=== PATIENT | female | born 1960 | race Caucasian/White ===

== ENCOUNTER 2017-08-22 19:23 | Emergency (ER) | payer OTHER | END 2017-08-22 20:06 | disposition home or self-care (01) | LOC: E/R 20:06 | DX: Z48.02 Encounter for removal of sutures (principal) | CPT/HCPCS: 99281; Z7502 ==

== ENCOUNTER 2018-02-14 23:18 | Emergency (ER) | payer OTHER ==
[2018-02-15] MEDS: morphine 4 MG/ML VIAL IM (01:34)
[2018-02-15] MEDS: KETOROLAC 60 MG INJ IM (01:34)
[2018-02-15] MEDS: METHOCARBAMOL 750 MG TAB PO (01:55)
== END 2018-02-15 02:12 | disposition home or self-care (01) ==
LOC: E/R 23:18
DX: G57.01 Lesion of sciatic nerve, right lower limb (principal); Z87.891 Personal history of nicotine dependence
CPT/HCPCS: 96372; 99284-25